=== PATIENT | female | born 1965 | race Caucasian/White ===

== ENCOUNTER 2021-08-15 01:35 | Outpatient (CLI) | payer OTHER, SELFPAY ==
--- NOTE | 2021-08-15 08:00 | DI.MRI_ITS ---
Exam(s) MR IAC BRAIN WO/W EXAM: MR IAC BRAIN WO/W CLINICAL HISTORY: sudden hearing loss right,H91.21 TECHNIQUE: Multiplanar multisequence MRI of the brain was performed. Both noninfused and contrast i nfused sequences were performed. IV Contrast injected was 20 cc Dotarem. COMPARISON: No exams were available for comparison FINDINGS: CEREBRAL PARENCHYMA: No evidence of intracranial hemorrhage, mass effect nor shift of midline structu re. No extraaxial fluid collections. Ventricles are not enlarged nor shifted. There is no significant focal signal abnormality in the cerebellar hemispheres nor within the erik, m idbrain, and thalami. There is no abnormal signal abnormality in the periventricular white matter. IAC'S: No evidence of mass in the cerebellopontine angle on either side. Also no evidence of intra c analicular acoustic neuroma. There are no ring enhancing lesions in the brain. There is no abnormal meningeal enhancement. FLOW VOIDS: The expected flow void are noted. No evidence of obvious aneurysm nor obvious vascular ma lformation. PARANASAL SINUSES: The visualized paranasal sinuses appear unremarkable. ORBITS: No obvious abnormal findings. IMPRESSION: 1. No significant intracranial findings on this MRI scan of the brain. 2. No abnormal enhancing intracranial finding. 3. No evidence of acoustic neuroma nor other mass in the cerebellopontine angles and internal audito ry canals.. DATA REPOSITORY:
[2021-08-15 13:46] LABS: CREATININE 0.7 mg/dL (0.55-1.02)
[2021-08-15] MEDS: Normal Saline Flush 10 ML SYR IVP (14:14)
[2021-08-15] MEDS: Gadoterate meglumine 20 ML SYRINGE IVP (14:15)
== END 2021-08-15 01:55 ==
PROVIDERS: PCP Internal Medicine; Visit Provider Otolaryngology
DX: H91.21 Sudden idiopathic hearing loss, right ear (principal)
CPT/HCPCS: 70553; 82565